=== PATIENT | male | born 1975 | race Caucasian/White ===

== ENCOUNTER 2017-10-03 06:44 | Day surgery (SDC) | payer BC ==
[2017-09-24 17:28] VITALS: BMI 25.1
[2017-10-03] MEDS ORDERED: ROPIVACAINE HCL 0.5% 30ML VIAL ONE (08:16)
[2017-10-03] MEDS ORDERED: MIDAZOLAM HCL 2 MG/2 ML SINGLE DOSE VIAL ONE ×2 (08:16→09:49)
[2017-10-03] MEDS ORDERED: DEXAMETHASONE SOD PHOSPHATE/PF 10 MG/ML SDV ONE (08:16)
[2017-10-03] MEDS ORDERED: BUPIVACAINE HCL/EPINEPHRINE/PF 30 ML VIAL IJ ONE (09:30)
[2017-10-03] MEDS ORDERED: ceFAZolin SODIUM 1 GM VIAL ONE (09:50)
[2017-10-03] MEDS ORDERED: PROPOFOL 20 ML ONE ×2 (09:50→10:10)
[2017-10-03] MEDS ORDERED: ONDANSETRON 4 MG/2 ML VIAL IVPUSH PRN (10:20)
[2017-10-03] MEDS ORDERED: oxyCODONE HCL 5 MG TABLET PO PRN ×3 (10:20→10:54)
[2017-10-03] MEDS ORDERED: LACTATED RINGERS SOLUTION 1,000 ML IV SCH (10:30)
--- NOTE | 2017-10-03 10:40 | SURG ---
Surgery Anthropology Instructor Note Anthropology Instructor: Larry Gilliland PA-C Date of Service: 10/03/17 Diagnosis: left shoulder labral tear, cuff degeneration, bursal hypertrophy . Procedure: Left shoulder arthroscopy, labral debridement, bursal debridement I was present for the entirety of the operative procedure. For further detail, please refer to operative report. Visit type - Case Type Case Type: Scheduled Admission - New patient This patient is new to me today: Yes Date on this admission: 10/03/17
[2017-10-03] MEDS ORDERED: oxyCODONE HCL 10 MG SUSTAINED ACTING TABLET PO ONE (10:54)
--- NOTE | 2017-10-03 11:02 | DS ---
Physical Examination Vital Signs: Vital Signs Temperature 98.0 F 10/03/17 07:34 Pulse Rate 55 L 10/03/17 07:34 Respiratory Rate 18 10/03/17 07:34 Blood Pressure 127/91 10/03/17 07:34 O2 Sat by Pulse Oximetry (%) 98 10/03/17 07:34 Discharge Summary Reason For Visit: LABRAL TEAR LEFT SHOULDER Condition: Good - Instructions Diet, Activity, Other Instructions: Post Operative Instructions: Shoulder Arthroscopy Dr Angelo Andrews 1. Pain following a Shoulder Arthroscopy is variable and can be significant. Some patients will have more pain than others. You have been provided with a prescription for medication that contains a narcotic. You are not allowed to drive while on this medication. You should NOT take Tylenol (Acetaminophen) when taking the pain medication ( it will result in an overdose). Feel free to take medications such as Ibuprofen or Naprosyn in addition to the pain medicine if you do not have any problems with the NSAID class of medications. 2. Apply ice to the shoulder for 15 minutes every hour. You may continue this for as many days as necessary. 3. You may find sleeping on an incline (reclining chair) to be more comfortable for the first few days. 4. You may remove your sling when the arm is comfortable. 5. You may use the arm as tolerated. 6. You may remove the bandages in 48 hours. You may shower at that point. 7. Place band-aids on the sutures after your shower.Do not put any creams or lotions on the incision until after the sutures are removed. 8. Please call the office to schedule a visit to have your sutures removed. 9. If for any reason you believe you may have an infection or are concerned, please feel free to call me. I can be reached through our office number 24 hours a day. 10. Please call our office with any questions; we will review the surgical findings during your post-operative visit. Disposition: HOME - Home Medications Comprehensive Discharge Medication List: Ambulatory Orders Cetirizine HCl [Zyrtec -] 10 mg PO HS 09/24/17 Fluticasone Prop 0.05% Nasal [Flonase -] 1 spray NS HS 09/24/17
--- NOTE | 2017-10-03 11:02 | OP ---
Operative Note - Note: Operative Date: 10/03/17 Pre-Operative Diagnosis: left shoulder labral tear, cuff degeneration, bursal hypertrophy Operation: LSA, labral debridement, bursal debridement. Surgeon: Angelo Andrews Anesthesia: General Operative Report Dictated: Yes
[2017-10-03] MEDS ORDERED: oxyCODONE HCL 10 MG SUSTAINED ACTING TABLET ONE (11:49)
[2017-10-03 12:06] VITALS: BP 125/76; PULSE 72; TEMP 98.1
--- NOTE | 2017-10-07 15:34 | PATH ---
Surgical Pathology Report Patient Name: SAMY TOMLINSON [facility]. Rec. #: [id number] /Age/Gender: 1975 (Age: 42) / F Account: [id number] Location: [facility], 1928–1983 AMBULATORY Taken: 10/03/2017 Received: 10/03/2017 Reported: 10/07/2017 Physicians: Angelo Andrews M.D. Specimen(s) Received LEFT SHOULDER SHAVINGS Clinical History Labral tear left shoulder Final Diagnosis LEFT SHOULDER, ARTHROSCOPIC SHAVINGS: FIBROCARTILAGE WITH MYXOID DEGENERATIVE CHANGES, AND PORTIONS OF SYNOVIUM. Electronically Signed Arnaud Stoner M.D. Gross Description Received in formalin, labeled "left shoulder shavings," is a 2 x 1.5 x 0.3 cm. aggregate of villagomez-yellow soft tissue fragments. The entire specimen is submitted in one cassette. ISABELLA/10/06/2017 don/10/06/2017
== END 2017-10-03 12:15 | disposition home or self-care (01) ==
LOC: FASU 06:44
PROVIDERS: ATTEND Orthopaedic Surgery
PROC: 0RBK4ZZ Excision of Left Shoulder Joint, Percutaneous Endoscopic Approach (ICD-10-PCS; 2017-10-03)
PROC: 0RQK4ZZ Repair Left Shoulder Joint, Percutaneous Endoscopic Approach (ICD-10-PCS; principal; 2017-10-03 10:07)
DX: M24.112 Other articular cartilage disorders, left shoulder (principal); M65.812 Other synovitis and tenosynovitis, left shoulder; M75.52 Bursitis of left shoulder
CPT/HCPCS: 88304-TC; 94760